=== PATIENT | female | born 1930 | race Caucasian/White ===

== ENCOUNTER 2016-12-11 08:28 | Day surgery (SDC) | payer MEDICARE, BC ==
--- NOTE | ~2016-12-11 | EGD ---
EGD REPORT [facility] [address] [address] NAME: AZALEA TRONCOSO : [birth year] STATUS : REG [facility] [place] PAT#: [id number] AGE: 86 ADM/REG DATE : 12/11/16 MR#: [id number] REPORT SERV DATE: 12/11/16 DICTATED BY: DATE: REPORT STATUS : Draft TRANSCRIBED BY: [employer] DATE: 12/11/16 [facility] Patient Name: Azalea Troncoso Date of : 1930 Attending MD: YONAS NOONAN MD Procedure Date No Time: 12/11/2016 Procedure: Upper GI endoscopy Indications: Iron deficiency anemia, Dysphagia, Heme positive stool, Early satiety, Weight loss Referring MD: ELE CORONA MD Medicines: Monitored Anesthesia Care Complications: No immediate complications. Procedure: Pre-Anesthesia Assessment: - ASA Grade Assessment: II - A patient with mild systemic disease. After obtaining informed consent, the endoscope was passed under direct vision. Throughout the procedure, the patient's blood pressure, pulse, and oxygen saturations were monitored continuously. The GIF H190 [id number] was introduced through the mouth, and advanced to the third part of duodenum. The upper GI endoscopy was accomplished without difficulty. The patient tolerated the procedure well. Findings: The examined esophagus was mildly tortuous. No other significant abnormalities were identified in a careful examination of the esophagus. There is no endoscopic evidence of Valencia's esophagus, areas of erosion, hiatus hernia, ulcerations or varices in the entire esophagus. A guidewire was placed and the scope was withdrawn. Dilation was performed in the entire esophagus with a Savary dilator with no resistance at 54 Fr. Diffuse mildly erythematous mucosa was found in the gastric body. Biopsies were taken with a cold forceps for histology. There is no endoscopic evidence of mucosal abnormalities, ulceration, varices, stenosis or mass in the entire examined stomach. The examined duodenum was normal. There is no endoscopic evidence of bleeding, mucosal abnormalities, ulceration or angioectasia in the entire examined duodenum. The cardia and gastric fundus were normal on retroflexion. Impression: - Tortuous esophagus. - Erythematous mucosa in the gastric body. Biopsied. - Normal examined duodenum. EGD REPORT [address] [address] NAME: AZALEA TRONCOSO : [birth year] STATUS : REG [facility] [place] PAT#: [id number] AGE: 86 ADM/REG DATE : 12/11/16 MR#: [id number] REPORT SERV DATE: 12/11/16 DICTATED BY: DATE: REPORT STATUS : Draft TRANSCRIBED BY: [employer] DATE: 12/11/16 - Dilation attempted in the entire esophagus. Successful. Recommendation: - Patient has a contact number available for emergencies. The signs and symptoms of potential delayed complications were discussed with the patient. Return to normal activities tomorrow. Written discharge instructions were provided to the patient. - Return to previous diet. - Discharge patient to home. - Continue present medications. - Await pathology results. Procedure Code(s): --- Professional --- 24926, Esophagogastroduodenoscopy, flexible, transoral; with insertion of guide wire followed by passage of dilator(s) through esophagus over guide wire 15670, Esophagogastroduodenoscopy, flexible, transoral; with biopsy, single or multiple Diagnosis Code(s): --- Professional --- Q39.9, Congenital malformation of esophagus, unspecified K31.9, Disease of stomach and duodenum, unspecified D50.9, Iron deficiency anemia, unspecified R13.10, Dysphagia, unspecified R19.5, Other fecal abnormalities R68.81, Early satiety R63.4, Abnormal weight loss CPT copyright 2013 [employer]. All rights reserved. The codes documented in this report are preliminary and upon mother superior review may be revised to meet current compliance requirements. YONAS NOONAN MD 12/11/2016 12:34 PM This report has been signed electronically. Number of Addenda: 0 Note Initiated On: 12/11/2016 11:57 AM Scope Withdrawal Time 0 hours 0 minutes 0 seconds [id number] [address]
--- NOTE | ~2016-12-11 | EGD ---
EGD REPORT [facility] [address] [address] NAME: AZALEA TRONCOSO : [birth year] STATUS : REG [facility] [place] PAT#: [id number] AGE: 86 ADM/REG DATE : 12/11/16 MR#: [id number] REPORT SERV DATE: 12/11/16 DICTATED BY: DATE: REPORT STATUS : Draft TRANSCRIBED BY: [employer] DATE: 12/11/16 Endoscopy Center Patient Name: Azalea Troncoso Date of : 1930 Attending MD: YONAS NOONAN MD Procedure Date No Time: 12/11/2016 Procedure: Colonoscopy Indications: Heme positive stool, Iron deficiency anemia Referring MD: ELE CORONA MD Medicines: Monitored Anesthesia Care Complications: No immediate complications. Procedure: Pre-Anesthesia Assessment: - ASA Grade Assessment: II - A patient with mild systemic disease. After I obtained informed consent, the scope was passed under direct vision. Throughout the procedure, the patient's blood pressure, pulse, and oxygen saturations were monitored continuously. The PCF [id number] was introduced through the anus and advanced to the terminal ileum. The colonoscopy was performed without difficulty. The patient tolerated the procedure well. The quality of the bowel preparation was excellent. Findings: The perianal and digital rectal examinations were normal. Multiple small and large-mouthed diverticula were found in the sigmoid colon, in the descending colon and in the transverse colon. A lipoma was found at the hepatic flexure. A sessile polyp was found in the descending colon. The polyp was diminutive in size. The polyp was removed with a cold biopsy forceps. Resection and retrieval were complete. A sessile polyp was found in the sigmoid colon. The polyp was small in size. The polyp was removed with a cold snare. Resection and retrieval were complete. No other significant abnormalities were identified in a careful examination of the remainder of the colon. There is no endoscopic evidence of bleeding, inflammation, mass, ulcerations or angioectasia in the entire colon. Internal hemorrhoids were found during retroflexion and were Grade I (internal hemorrhoids that do not prolapse). No additional abnormalities were found on retroflexion. Impression: - Diverticulosis in the sigmoid colon, in the descending colon and in the transverse colon. - Incidental lipoma. EGD REPORT [address] [address] NAME: AZALEA TRONCOSO : [birth year] STATUS : REG [facility]#: [id number] AGE: 86 ADM/REG DATE : 12/11/16 MR#: [id number] REPORT SERV DATE: 12/11/16 DICTATED BY: DATE: REPORT STATUS : Draft TRANSCRIBED BY: [employer] DATE: 12/11/16 - One diminutive polyp in the descending colon. Resected and retrieved. - One small polyp in the sigmoid colon. Resected and retrieved. - Internal hemorrhoids. Recommendation: - Patient has a contact number available for emergencies. The signs and symptoms of potential delayed complications were discussed with the patient. Return to normal activities tomorrow. Written discharge instructions were provided to the patient. - High fiber diet. - Discharge patient to home. - Continue present medications. - Await pathology results. - Repeat colonoscopy is not recommended for surveillance. - Follow up CBC. If no worsening trend, would not pursue further imaging. Procedure Code(s): --- Professional --- 28861, Colonoscopy, flexible, proximal to splenic flexure; with removal of tumor(s), polyp(s), or other lesion(s) by snare technique 22461, 59, Colonoscopy, flexible, proximal to splenic flexure; with biopsy, single or multiple Diagnosis Code(s): --- Professional --- K64.0, First degree hemorrhoids K57.30, Diverticulosis of large intestine without perforation or abscess without bleeding D12.5, Benign neoplasm of sigmoid colon D12.4, Benign neoplasm of descending colon R19.5, Other fecal abnormalities D50.9, Iron deficiency anemia, unspecified CPT copyright 2013 [employer]. All rights reserved. The codes documented in this report are preliminary and upon electronic equipment set up operator review may be revised to meet current compliance requirements. YONAS NOONAN MD 12/11/2016 12:43 PM This report has been signed electronically. Number of Addenda: 0 EGD REPORT [facility] [address] [address] NAME: AZALEA TRONCOSO : [birth year] STATUS : REG [facility] [place] PAT#: [id number] AGE: 86 ADM/REG DATE : 12/11/16 MR#: [id number] REPORT SERV DATE: 12/11/16 DICTATED BY: DATE: REPORT STATUS : Draft TRANSCRIBED BY: [employer] DATE: 12/11/16 Note Initiated On: 12/11/2016 10:52 AM Scope Withdrawal Time 0 hours 9 minutes 17 seconds [address] [id number]
[~2016-12-11 08:28] MED LIST: AZO-STANDARD95 MG PO; BAC PO; CARDIZEM LA360 MG PO; LIPOFEN50 MG PO; PRILO PO; VESICARE5 PO; ZOL50 PO
== END 2016-12-11 23:59 | disposition home or self-care (01) ==
LOC: DMU 08:28
PROVIDERS: Internal Medicine Gastroenterology
PROC: 0D758ZZ Dilation of Esophagus, Via Natural or Artificial Opening Endoscopic (ICD-10-PCS; principal; 2016-12-11 11:30)
PROC: 0DB58ZX Excision of Esophagus, Via Natural or Artificial Opening Endoscopic, Diagnostic (ICD-10-PCS; 2016-12-11 11:30)
PROC: 0DBM8ZZ Excision of Descending Colon, Via Natural or Artificial Opening Endoscopic (ICD-10-PCS; 2016-12-11 11:30)
PROC: 0DBN8ZZ Excision of Sigmoid Colon, Via Natural or Artificial Opening Endoscopic (ICD-10-PCS; 2016-12-11 11:30)
DX: D12.4 Benign neoplasm of descending colon (principal); D12.5 Benign neoplasm of sigmoid colon; K29.50 Unspecified chronic gastritis without bleeding; K31.89 Other diseases of stomach and duodenum; K57.30 Diverticulosis of large intestine without perforation or abscess without bleeding; K64.8 Other hemorrhoids; I12.9 Hypertensive chronic kidney disease with stage 1 through stage 4 chronic kidney disease, or unspecified chronic kidney disease; N18.9 Chronic kidney disease, unspecified; Z98.890 Other specified postprocedural states; Z79.899 Other long term (current) drug therapy
CPT/HCPCS: 88305; 88342; Q9967